=== PATIENT | male | born 1970 | race Caucasian/White ===

== ENCOUNTER 2021-07-12 08:10 | Day surgery (SDC) | payer OTHER ==
[2021-07-10 15:21] VITALS: BMI 25.5
[~2021-07-12 08:10] MED LIST: LACTATED RINGERS 1,000 ML IV SCH
[2021-07-12 08:32] VITALS: RESP 16; TEMP 96.9
[2021-07-12] MEDS ORDERED: LIDOCAINE 1% (10MG/ML) FOR IV START INTRADERMA ONE (08:44)
[2021-07-12] MEDS ORDERED: PROPOFOL 10 MG/ML 20 ML VIAL IV ONE (08:54)
[2021-07-12] MEDS ORDERED: MIDAZOLAM 2 MG/2 ML VIAL ONE (08:54)
[2021-07-12] MEDS ORDERED: fentaNYL (PF) 50 MCG/ML 2 ML AMP ONE (08:54)
--- NOTE | 2021-07-12 09:11 | P.PCN ---
Date of Procedure: 07/12/21 Procedure(s) Performed: BRIEF HISTORY: Patient is a 50-year-old pleasant white male scheduled for an elective colonoscopy as a part of screening for colon cancer. PROCEDURE PERFORMED: Colonoscopy. PREOPERATIVE DIAGNOSIS: Screening for colon cancer. IV sedation per Anesthesia. PROCEDURE: After informed consent was obtained, the patient, was brought into the endoscopy unit. IV sedation was administered by Anesthesia under continuous monitoring. Digital rectal examination was normal. Initially the Olympus CF-160 flexible video colonoscope was then inserted in the rectum, gradually advanced into the cecum without any difficulty. Careful examination was performed as the scope was gradually being withdrawn. Ileocecal valve and the appendiceal orifice were visualized and appeared normal. Prep was excellent. Mucosa of the cecum, ascending colon, transverse colon, descending colon, sigmoid colon, and rectum appeared normal. Retroflexion was performed in the rectum and no lesions were seen. The patient tolerated the procedure well. IMPRESSION: Normal-appearing colon from rectum to cecum with no evidence of colorectal . RECOMMENDATIONS: Findings of this examination were discussed with the patient well as his family.. He was advised to have a repeat screening colonoscopy in 10 years
[2021-07-12 09:35] VITALS: BP 121/84; PULSE 72
== END 2021-07-12 10:15 | disposition home or self-care (01) ==
LOC: ORWHC2ENDO 08:10
PROVIDERS: ATTEND Internal Medicine Gastroenterology
DX: Z12.11 Encounter for screening for malignant neoplasm of colon (principal); I10 Essential (primary) hypertension; Z79.1 Long term (current) use of non-steroidal anti-inflammatories (NSAID); Z79.899 Other long term (current) drug therapy
CPT/HCPCS: J2250; J3010; J2704; G0121

== ENCOUNTER 2023-01-29 09:57 | Day surgery (SDC) | payer OTHER ==
--- NOTE | 2023-01-29 10:29 | XR ---
EXAMINATION TYPE: XR KUB DATE OF EXAM: 01/29/2023 HISTORY: Pain Comparison: None Single KUB is submitted for interpretation. Findings: Right renal calculi: None Visualized. Right ureteral calculi: None Visualized. Left renal calculi: Left ureteral calculus is noted at the L2-3 level and measures 9.1 x 6.4 mm. Left ureteral calculi: None Visualized. Pelvic calcifications: Multiple pelvic phleboliths noted. Bowel gas pattern is unremarkable. No free air. No mass effects. IMPRESSION: 1. Left ureteral calculus is noted at the L2-3 level and measures 9.1 x 6.4 mm.
[2023-01-29] MEDS ORDERED: LACTATED RINGERS 1,000 ML IV ONE (10:38)
[2023-01-29] MEDS ORDERED: ONDANSETRON 4 MG/2 ML VIAL ONE (10:43)
[2023-01-29] MEDS ORDERED: DEXAMETHASONE SOD PHOSPHATE 4 MG/ML 1 ML VIAL IVP ONE (10:46)
--- NOTE | 2023-01-29 11:25 | P.HPIHPCON ---
History of Present Illness H&P Date: 01/29/23 Chief Complaint: Left ureteral stone This is a 52-year-old male with history of a 7 mm left-sided proximal ureteral stone, he symptomatically from his stone. Option of left-sided ureteroscopy with holmium laser VS ESWL was discussed in detail. He agreed proceed with left-sided ureteroscopy with holmium laser. Aware of the risk which includes but not limited to bleeding, infection, injury to the ureter. Risk of anesthesia was also discussed Consent for Procedure: I have explained the operation/procedure to the patient, including the risks, benefits, side effects, alternative therapies (including not receiving the proposed treatment or service), the likelihood of the patient achieving his/her goals, and potential recuperation problems for the procedure/sedation/analgesia, as well as any blood products, if indicated. I also explained to the patient the risks, benefits and side effects of the alternatives, as well as the risks related to not receiving the proposed procedure, care, treatment, or services. Past Medical History Past Medical History: Hypertension Additional Past Medical History / Comment(s): BP elevated @times but has never had to take rx. for History of Any Multi-Drug Resistant Organisms: None Reported Past Surgical History: No Surgical Hx Reported Additional Past Anesthesia/Blood Transfusion Reaction / Comment(s): no family problems w/anesthesia Smoking Status: Never smoker Medications and Allergies Home Medications Medication Instructions Recorded Confirmed Type Acetaminophen Tab [Tylenol] 650 mg PO Q6H PRN 07/10/21 01/29/23 History Ibuprofen [Motrin Ib] 800 mg PO Q6H PRN 07/10/21 01/29/23 History HYDROcodone/APAP 5-325MG [[place] 1 tab PO Q4HR PRN 01/29/23 01/29/23 History 5-325] Allergies Allergy/AdvReac Type Severity Reaction Status Date / Time No Known Allergies Allergy Verified 01/29/23 10:27 Surgical - Exam Vital Signs Temp Pulse Resp BP Pulse Ox 97 F L 68 17 142/85 98 01/29/23 10:32 01/29/23 10:32 01/29/23 10:32 01/29/23 10:32 01/29/23 10:32 - General no distress, moderate pain - Eyes normal ocular movement, no pale - ENT normal nares, normal mucosa - Respiratory normal expansion, normal respiratory effort - Abdomen Abdomen: soft, non tender - Psychiatric oriented to time, oriented to person, oriented to place Assessment and Plan Assessment: OR for left-sided ureteroscopy, holmium laser lithotripsy, stone basketing and stent insertion
[2023-01-29] MEDS ORDERED: LIDOCAINE 2% INJ 20 MG/ML (2 ML VIAL) ONE (11:36)
[2023-01-29] MEDS ORDERED: fentaNYL (PF) 50 MCG/ML 2 ML AMP ONE (11:36)
[2023-01-29] MEDS ORDERED: MIDAZOLAM 2 MG/2 ML VIAL ONE (11:36)
[2023-01-29] MEDS ORDERED: PROPOFOL 10 MG/ML 20 ML VIAL IV ONE (11:36)
[2023-01-29 12:53] VITALS: TEMP 97.9
--- NOTE | 2023-01-29 13:14 | P.OP ---
Date of Procedure: 01/29/23 Preoperative Diagnosis: Ureteral stone Postoperative Diagnosis: Same Procedure(s) Performed: Cystoscopy, Left ureteroscopy Holmium laser lithotripsy, stone basketing and stent insertion, Implants: 6Fr X 26 cm stent in the left ureter, left on string Anesthesia: KADEEMA Surgeon: Chauncey Phoenix Estimated Blood Loss (ml): 5 Pathology: other (left ureteral stone) Condition: stable Disposition: PACU Indications for Procedure: This is a 52-year-old male with history of a 7 mm left-sided proximal ureteral stone, he symptomatically from his stone. Option of left-sided ureteroscopy with holmium laser VS ESWL was discussed in detail. He agreed proceed with left-sided ureteroscopy with holmium laser. Aware of the risk which includes but not limited to bleeding, infection, injury to the ureter. Risk of anesthesia was also discussed Operative Findings: left sided proximal stone Description of Procedure: patient brought to the operating room, general anesthesia was induced. He was prepped and draped in sterile fashion and placed in a dorsal lithotomy position. Cystoscopy fitted 21-Swedish sheath was inserted per urethra, cystoscopy was performed which showed no abnormality within the bladder. Patient had a small nonobstructive prostate. Next attention was then carried to the left ureteral orifice which was intubated with a sensor wire. Next under fluoroscopy 1113 Swedish access sheath was passed over the wire and into the proximal ureter. Next a flexible ureteroscope was inserted through the access sheath, stone was seen in the proximal ureter. Using the holmium laser the stone was fragmented, stone fragments were removed using the stone basket. At this time the ureteroscope was advanced into the kidney, renoscopy was performed showed no stones within the kidney. Repeat renoscopy and ureteroscopy showed no sizable fragments or injury to the kidney. Pullback ureteroscopy was performed which showed no injury to the ureter or any ureteral stones, As the ureteroscope was withdrawn, a sensor wire was advanced through. Next a ureteral stent was passed over the wire, the proximal curl was visualized on fluoroscopy and the distal curl was was ligated using the cystoscope. The stent was left on a string and taped to the patient penis. Patient tolerated procedure well was taken to recovery in stable condition
[2023-01-29 14:07] VITALS: BP 149/93; PULSE 63; RESP 16
--- NOTE | 2023-01-31 08:54 | FL ---
Intraoperative/procedural fluoroscopic services were provided. Total fluoroscopy time is 30 seconds w ith a total of 6 submitted images to PACS. Please see the operative/procedural note for further detai ls. DAP: [id number] [id number]
== END 2023-01-29 14:28 | disposition home or self-care (01) ==
LOC: OR 09:57
PROVIDERS: ATTEND Urology
DX: N20.1 Calculus of ureter (principal); I10 Essential (primary) hypertension; Z87.442 Personal history of urinary calculi; Z98.890 Other specified postprocedural states
CPT/HCPCS: 52356; 82365; 74018; C2625; C1769; J2250; J1100; J0690; J2405; J3010; J2704; J2001